=== PATIENT | female | born 1975 | race Caucasian/White ===

== ENCOUNTER 2020-06-21 09:26 | Emergency (ER) | payer OTHER | END 2020-06-21 09:56 | disposition home or self-care (01) | LOC: BURERS 09:26 | DX: R06.02 Shortness of breath (principal); J45.909 Unspecified asthma, uncomplicated; F17.290 Nicotine dependence, other tobacco product, uncomplicated | CPT/HCPCS: 99281 ==

== ENCOUNTER 2021-01-04 16:48 | Emergency (ER) | payer OTHER ==
[2021-01-04] MEDS ORDERED: traMADol HCl 50 MG TAB ONE (17:17)
[2021-01-04] MEDS ORDERED: Ibuprofen 800 MG TAB ONE (17:17)
== END 2021-01-04 17:20 | disposition home or self-care (01) ==
LOC: BURERS 16:48
DX: S93.402A Sprain of unspecified ligament of left ankle, initial encounter (principal); X50.1XXA Overexertion from prolonged static or awkward postures, initial encounter; J45.909 Unspecified asthma, uncomplicated; F17.200 Nicotine dependence, unspecified, uncomplicated

== ENCOUNTER 2021-02-05 14:28 | Outpatient (CLI) | payer OTHER | END 2021-02-05 14:29 | disposition home or self-care (01) | LOC: BURRAD 14:28 | PROVIDERS: ATTEND Physician Assistant | DX: M25.572 Pain in left ankle and joints of left foot (principal); Z91.81 History of falling ==

== ENCOUNTER 2021-10-08 15:04 | Emergency (ER) | payer OTHER ==
[2021-10-08] MEDS ORDERED: Nitroglycerin 0.4 MG TAB 1 EACH ONE (15:25)
[2021-10-08] MEDS ORDERED: Aspirin Chewable 81 MG TAB ONE (15:25)
[2021-10-08 15:32] LABS: #Basophils 0.1 thou/uL (0.0-0.2); #Eosinphils 0.1 thou/uL (0.0-0.7); #Lymphocytes 2.9 thou/uL (1.20-3.40); #Monocytes 0.7 thou/uL (0.11-0.59); %Basophils 1.4 % (0.0-1.0); %Eosinophils 0.7 % (0.0-10.0); %Lymphocytes 29.4 % (21.0-51.0); %Monocytes 7.1 % (0.0-10.0); %Neutrophils 61.5 % (42.0-75.0); Hemoglobin 13.4 g/dL (12.0-16.0); Mean Corpuscular HGB CONC 33.3 g/dL (32.0-36.0); Mean Corpuscular Hemoglobin 29.5 pg (27.0-31.0); Mean Corpuscular Volume 88.5 fL (78.0-98.0); Mean Platelet Volume 6.4 fL (7.4-10.4); Platelet Count 316 thou/uL (130-400); RBC Distribution Width 11.2 % (11.5-14.5); Red Blood Cell (RBC) Count 4.54 mill/uL (4.20-5.40); White Blood Cell (WBC) Count 9.7 thou/uL (4.8-10.8)
[2021-10-08 15:49] LABS: ALT (SGPT) 24 U/L (8-55); AST (SGOT) 15 U/L (5-34); Albumin 4.2 g/dL (3.5-5.0); Alkaline Phosphatase 79 U/L (40-110); Anion Gap 12 mmol/L (10-20); BUN (Urea Nitrogen) 11 mg/dL (7.0-18.7); Bilirubin, Total 0.2 mg/dL (0.2-1.2); Calc. Creatinine Clearance 0 mL/min (70-130); Calcium 9.2 mg/dL (7.8-10.44); Carbon Dioxide 28 mmol/L (22-29); Chloride 105 mmol/L (98-107); Estimated GFR 91; Glucose 71 mg/dL (70-105); Lipase 30 U/L (8-78); Potassium 3.6 mmol/L (3.5-5.1); Protein, Total 7.2 g/dL (6.0-8.3); Sodium 141 mmol/L (136-145)
== END 2021-10-08 19:15 | disposition home or self-care (01) ==
LOC: BURERS 15:04
DX: I10 Essential (primary) hypertension (principal); R07.9 Chest pain, unspecified; F17.210 Nicotine dependence, cigarettes, uncomplicated
CPT/HCPCS: 71045; 80053; 83690; 83880; 84484; 85025; 85379; 93005; 94760

== ENCOUNTER 2022-03-10 12:41 | Outpatient (CLI) | payer OTHER | END 2022-03-10 12:42 | disposition home or self-care (01) | LOC: BURRAD 12:41 | PROVIDERS: ATTEND Physician Assistant | DX: M25.511 Pain in right shoulder (principal) ==